=== PATIENT | male | born 1965 | race Caucasian/White ===

== ENCOUNTER 2024-04-17 20:02 | Emergency (ER) | payer OTHER ==
[~2024-04-17] VITALS: Ht 188 cm; Wt 104.7 kg
[2024-04-17] MEDS: NS 500 ML IV ONE (20:35)
[2024-04-17 20:37] LABS: BASO % 0.6 % (0.0-1.0); EOS # 0.1 10^3/uL (0.0-0.5); EOS % 1.2 % (0.0-3.0); HEMATOCRIT 37.1 % (42.0-52.0); LYMPH # 0.4 10^3/uL (1.5-5.0); LYMPH % 9.1 % (24.0-44.0); MEAN CORPUSCULAR HEMOGLOBIN 32.9 pg (27.0-33.0); MEAN CORPUSCULAR VOLUME 93.9 fl (80.0-96.0); MONO # 0.5 10^3/uL (0.0-0.8); MONO % 10.1 % (2.0-8.0); NEUTROPHILS # 3.8 10^3/uL (1.5-8.5); NEUTROPHILS % 78.6 % (36.0-66.0); PLATELET COUNT, AUTOMATED 106 10^3/uL (150-450); RED BLOOD COUNT 3.95 10^6/uL (4.30-6.10); WHITE BLOOD COUNT 4.8 10^3/uL (4.0-10.0)
[2024-04-17 20:57] LABS: CK-MB VALUE MASS 1.8 NG/ML (<3.6)
[2024-04-17 20:59] LABS: ETHYL ALCOHOL (ETHANOL) 0.117 % (0.000-0.010); LIPASE 60 U/L (12-53)
[2024-04-17 21:00] LABS: CPK CREATINE PHOSPHOKINASE 104 U/L (46-171); MB/CK RELATIVE INDEX 1.73 (< OR =4)
[2024-04-17 21:01] LABS: ALBUMIN 3.9 G/DL (3.2-5.2); ALKALINE PHOSPHATASE 81 U/L (46-116); ALT/SGPT 53 U/L (7.0-40); AST/SGOT 59 U/L (<34); BILIRUBIN,DIRECT 0.5 MG/DL (<0.4); BILIRUBIN,TOTAL 1.1 MG/DL (0.3-1.2); BLOOD UREA NITROGEN 7 MG/DL (9-23); CALCIUM LEVEL 8.8 MG/DL (8.5-10.1); CARBON DIOXIDE LEVEL 25 MMOL/L (20-31); CHLORIDE LEVEL 97 MMOL/L (98-107); CREATININE FOR GFR 0.86 MG/DL (0.70-1.30); GLOMERULAR FILTRATION RATE > 60.0 (>56); GLUCOSE, FASTING 101 MG/DL (60-100); MAGNESIUM LEVEL 1.7 MG/DL (1.8-2.4); POTASSIUM SERUM 4.6 MMOL/L (3.5-5.1); SODIUM LEVEL 131 MMOL/L (136-145); TOTAL PROTEIN 6.7 G/DL (5.7-8.2)
[2024-04-17 21:02] LABS: FREE T4 1.23 NG/DL (0.89-1.76); THYROID STIMULATING HORMONE 1.875 uIU/ML (0.55-4.78)
[2024-04-17] MEDS: NS 1,000 ML IV SCH (22:00)
[2024-04-17 22:05] VITALS: BP 169/88
[2024-04-17] MEDS: METOPROLOL SUCC (TopROL XL) 100MG *XL* TAB PO ONE (22:05)
[2024-04-17] MEDS: ATORVASTATIN 20 MG TAB PO ONE (22:06)
[2024-04-17] MEDS: RIVAROXABAN 20MG TAB (XARELTO) PO ONE (22:06)
[2024-04-17] MEDS: DIGOXIN 0.25 MG TAB PO STA (22:06)
[2024-04-17 22:23] LABS: DIGOXIN LEVEL 0.7 NG/ML (0.8-2.0)
[2024-04-17 22:34] LABS: CK-MB VALUE MASS 1.7 NG/ML (<3.6); MB/CK RELATIVE INDEX 0.52 (< OR =4)
[2024-04-17 23:01] VITALS: BP 163/94; TEMP 97.8; O2SAT 99
== END 2024-04-17 23:13 | disposition home or self-care (01) ==
LOC: EDBD 20:02 → M ED 20:02
DX: R55 Syncope and collapse (principal); E86.0 Dehydration; F10.10 Alcohol abuse, uncomplicated; I49.1 Atrial premature depolarization; Z86.79 Personal history of other diseases of the circulatory system